=== PATIENT | male | born 1955 | race Caucasian/White ===

== ENCOUNTER → 2016-07-17 | Outpatient (CLI) | payer OTHER ==
[~2016-07-17] MED LIST: AMLO-114 PO; ASPI-435 PO; ATOR-26 PO; B-COCAP2 PO; BACL10TA PO; CEPH500C PO; CHOL2000 PO; DOCU100C31 PO; ERGO500037 PO; LACT10SO17 PO; LISI-725 PO; OMEP40CA PO; OXYC-57 PO; RIVA1TAB4 PO; SENN-65 PO; TIZA4CAP PO; TRAM-10 PO; TRAZ50TA35 PO; XRL15 PO
--- NOTE | 2016-07-17 14:23 | DIAGNOSTIC IMAGING REPORT ---
CHEST 2 VIEWS ROUTINE CLINICAL HISTORY: WEIGHT LOSS COMPARISON STUDY: 05/14/2016 FINDINGS: The cardiac and mediastinal contours are normal. There is no evidence of focal pulmonary consolidation. There is no evidence of failure. No pleural effusions are visualized.[ IMPRESSION: No active disease in the chest. Electronically signed by: Mike Fermin M.D. 07/17/2016 2:21 PM Dictated Date/Time: 07/17/2016 2:21 PM
[2016-07-17 16:56] LABS: BASO % 0.3 %; BASO ABS # 0.03 K/uL (0-0.2); COMPLETE YES; EOS % 1.9 %; HEMATOCRIT 41.6 % (42-52); IG% 0.1 %; LYMPH % 26.1 %; LYMPH ABS # 2.31 K/uL (1.2-3.4); MEAN CELL VOLUME 86.7 fL (80-100); MEAN CORPUSCULAR HEMOGLOBIN 30.8 pg (25-34); MEAN CORPUSCULAR HGB CONC 35.6 g/dl (32-36); MEAN PLATELET VOLUME 10.7 fL (7.4-10.4); MONO % 10.4 %; NEUT % 61.2 %; PLATELET COUNT 330 K/uL (130-400); WHITE BLOOD COUNT 8.84 K/uL (4.8-10.8)
[2016-07-17 17:06] LABS: BLOOD UREA NITROGEN 10 mg/dl (7-18); GLUCOSE 102 mg/dl (70-99)
[2016-07-17 17:07] LABS: ALT/SGPT 26 U/L (12-78); BUN/CREATININE RATIO 11.2 (10-20); CALCIUM 9.5 mg/dl (8.5-10.1); CARBON DIOXIDE 24 mmol/L (21-32); CHLORIDE 101 mmol/L (98-107); CREATININE 0.92 mg/dl (0.60-1.40); POTASSIUM 3.9 mmol/L (3.5-5.1); SODIUM 137 mmol/L (136-145)
[2016-07-17 17:08] LABS: URINE APPEARANCE CLEAR (CLEAR); URINE BILIRUBIN NEG (NEG); URINE COLOR YELLOW; URINE EPITHELIAL CELL AUTO 0-5 /lpf (0-5); URINE NITRITE NEG (NEG); UROBILINOGEN NEG (NEG)
[2016-07-17 17:09] LABS: MANUAL MICROSCOPIC REQUIRED? NO; REVIEW REQ? NO
[2016-07-17 17:18] LABS: ALB/GLOB RATIO 1.3 (0.9-2); ALKALINE PHOSPHATASE 82 U/L (45-117); AST/SGOT 12 U/L (15-37); PROSTATE SPECIFIC ANTIGEN 0.439 ng/ml (0.000-4.000); THYROID STIMULATING HORMONE 0.847 uIu/ml (0.300-4.500)
== END | disposition home or self-care (01) ==
LOC: C.LABBC 13:52
PROVIDERS: ATTEND Family Medicine
DX: R63.4 Abnormal weight loss (principal); Z11.59 Encounter for screening for other viral diseases; R39.9 Unspecified symptoms and signs involving the genitourinary system

== ENCOUNTER → 2016-07-18 | Outpatient (CLI) | payer OTHER ==
[~2016-07-18] MED LIST changes: +OPTIRAY 320 IV PRN
--- NOTE | 2016-07-18 11:33 | DIAGNOSTIC IMAGING REPORT ---
Abdominal CT with and without intravenous contrast, renal protocol HISTORY: Follow-up COMPLEX RENAL CYST TECHNIQUE: Multiaxial CT images of the abdomen were performed both before and after the intravenous administration of contrast including delayed sequences to evaluate the kidneys. COMPARISON STUDY: Abdominal CT 08/03/2015. FINDINGS: There is no change in size or appearance of the lobular 5.1 x 3.3 cm lesion within the right kidney. This does not demonstrate significant enhancement. There are few thin nonenhancing septations which do not appear to be significantly changed. There are few scattered mural calcifications. The areas of calcification have slightly progressed. No areas of soft tissue enhancement. There is a 13 mm nonenhancing hypodense lesion within the upper pole of the right kidney. This is consistent with a cyst. There are few additional subcentimeter hypodense lesions within the right kidney which measure up to 8 mm. These are technically too small to characterize but also favors cysts. A 2.1 cm nonenhancing hypodense lesion within the upper pole the left kidney is consistent with a cyst. A 9 mm hypodense lesion within the upper pole the left kidney is too small to characterize but also favors a cyst. No definite solid enhancing renal lesions. No renal stones or hydronephrosis. No suspicious filling defects seen within the bilateral renal collecting systems or proximal ureters. The lung bases are clear. The liver, gallbladder, pancreas, adrenal glands, and spleen are unremarkable. The visualized loops of bowel show no wall thickening or obstruction. IMPRESSION: 1. No significant change in size in the 5.1 x 3.3 cm cyst within the right kidney. This contains a few thin septations and a few punctate calcifications within the septa. The number of calcifications have slightly increased. However, the septations are not significantly changed. There are no solid enhancing components. Therefore, this is consistent with a Bosniak category 2 cyst. 2. Additional hypodense lesions as described above also likely represent cysts. Some of these are subcentimeter in size and technically too small to characterize. Electronically signed by: Manoj Gee M.D. 07/18/2016 11:32 AM Dictated Date/Time: 07/18/2016 11:04 AM
== END | disposition home or self-care (01) ==
LOC: C.CTS 10:08
PROVIDERS: ATTEND Urology
DX: N28.1 Cyst of kidney, acquired (principal)

== ENCOUNTER 2016-11-16 18:10 | Emergency (ER) | payer OTHER ==
[~2016-11-16] VITALS: Ht 193 cm; Wt 85.0 kg
[~2016-11-16 18:10] MED LIST changes: -CEPH500C PO; -LACT10SO17 PO; -OPTIRAY 320 IV PRN; -OXYC-57 PO; -SENN-65 PO; -TIZA4CAP PO; -XRL15 PO
[2016-11-16 18:14] VITALS: TEMP 36.7; Ht 193 cm; Wt 85.0 kg
[2016-11-16] MEDS ORDERED: OXYCODONE/ACETAMINOPHEN 5-325 TAB PO STA (18:23)
[2016-11-16] MEDS ORDERED: PERCOCET HOME PACK PO STA (18:23)
[2016-11-16] MEDS ORDERED: OXYC-57 PO (18:29)
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
[2016-11-16] MEDS ORDERED: HYDROmorphone INJ 1 MG/ML SYR IM STA (18:36)
[2016-11-16] MEDS ORDERED: LACT10SO17 PO (18:38)
[2016-11-16 20:26] VITALS: BP 117/69; PULSE 77; O2SAT 98
[2016-11-23] MEDS ORDERED: CEPH500C PO (08:42)
== END 2016-11-16 20:28 | disposition home or self-care (01) ==
LOC: C.EDB 18:12 → C.EDD 20:28
DX: T25.221A Burn of second degree of right foot, initial encounter (principal); T25.231A Burn of second degree of right toe(s) (nail), initial encounter; X12.XXXA Contact with other hot fluids, initial encounter; I10 Essential (primary) hypertension; E78.5 Hyperlipidemia, unspecified; F41.9 Anxiety disorder, unspecified; Z86.73 Personal history of transient ischemic attack (TIA), and cerebral infarction without residual deficits; Z86.711 Personal history of pulmonary embolism; Z86.718 Personal history of other venous thrombosis and embolism; Z79.82 Long term (current) use of aspirin; Z79.899 Other long term (current) drug therapy; Z88.6 Allergy status to analgesic agent; Z80.9 Family history of malignant neoplasm, unspecified; Z82.49 Family history of ischemic heart disease and other diseases of the circulatory system

== ENCOUNTER → 2016-12-06 | Outpatient (CLI) | payer OTHER ==
[~2016-12-06] MED LIST changes: +CEPH500C PO; -DOCU100C31 PO; +LACT10SO17 PO; -TRAM-10 PO
--- NOTE | 2016-12-06 14:56 | DIAGNOSTIC IMAGING REPORT ---
CHEST 2 VIEWS ROUTINE CLINICAL HISTORY: ABNORMAL WEIGHT LOSS, FATIGUE COMPARISON STUDY: 07/17/2016 FINDINGS: The cardiac and mediastinal contours are normal. There is no evidence of focal pulmonary consolidation. There is no evidence of failure. No pleural effusions are visualized.[ IMPRESSION: No active disease in the chest. Electronically signed by: Mike Fermin M.D. 12/06/2016 2:54 PM Dictated Date/Time: 12/06/2016 2:54 PM
== END | disposition home or self-care (01) ==
LOC: C.RADBC 14:38
PROVIDERS: ATTEND Internal Medicine Gastroenterology
DX: R63.4 Abnormal weight loss (principal); R53.83 Other fatigue

== ENCOUNTER → 2016-12-13 | Outpatient (CLI) | payer OTHER ==
--- NOTE | 2016-12-13 08:33 | DIAGNOSTIC IMAGING REPORT ---
ABDOMINAL ULTRASOUND COMPLETE HISTORY: Weight loss fatigue. COMPARISON: 07/12/2015 FINDINGS: Pancreas: The pancreas demonstrates a normal echotexture. Liver: Unremarkable. Gallbladder: Small gallbladder polyp. No shadowing gallstones. CBD: 5 mm Kidneys: No evidence for hydronephrosis. Right complex cysts of the right kidney unchanged. Small simple cyst upper pole left kidney unchanged. Spleen: Normal in size. Aorta: Normal in caliber. IVC: Patent. IMPRESSION: Small gallbladder polyp. Bilateral renal cysts unchanged from prior exams. No new or interval finding. Electronically signed by: Catarino Zhong M.D. 12/13/2016 8:32 AM Dictated Date/Time: 12/13/2016 8:29 AM
[2016-12-13 14:18] LABS: BLOOD UREA NITROGEN 12 mg/dl (7-18); BUN/CREATININE RATIO 15.8 (10-20); CALCIUM 9.2 mg/dl (8.5-10.1); CARBON DIOXIDE 26 mmol/L (21-32); CHLORIDE 108 mmol/L (98-107); CREATININE 0.75 mg/dl (0.60-1.40); GLUCOSE 95 mg/dl (70-99); SODIUM 142 mmol/L (136-145)
== END | disposition home or self-care (01) ==
LOC: C.ULTR 07:12
PROVIDERS: ATTEND Internal Medicine Gastroenterology
DX: R63.4 Abnormal weight loss (principal); R53.83 Other fatigue; N28.1 Cyst of kidney, acquired; K82.4 Cholesterolosis of gallbladder

== ENCOUNTER → 2016-12-14 | Outpatient (CLI) | payer OTHER ==
[~2016-12-14] MED LIST changes: +GADAVIST IV PRN
--- NOTE | 2016-12-14 08:43 | DIAGNOSTIC IMAGING REPORT ---
MRI OF THE BRAIN WITHOUT AND WITH IV CONTRAST CLINICAL HISTORY: VISION Changes, weight LOSS COMPARISON STUDY: 01/18/2016 TECHNIQUE: Utilizing a 1.5 Jenny magnet and dedicated coil, multiplanar, multiecho imaging of the brain was performed pre and postcontrast administration. IV administration of 8.4 mL of Gadavist contrast was uneventful. FINDINGS: No evidence for an acute ischemic process. Chronic small vessel change of the periventricular deep white matter regions. Occlusion or near occlusion left internal carotid artery which has been a chronic finding in this patient. Ventricular system is midline. Mild age-appropriate atrophy and chronic small vessel change. Left periventricular infarcts previously described are not well seen currently. IMPRESSION: Chronic small vessel change. Mild atrophy. Chronic occlusion left internal carotid artery. No new or interval process. Electronically signed by: Catarino Zhong M.D. 12/14/2016 8:42 AM Dictated Date/Time: 12/14/2016 8:38 AM
== END | disposition home or self-care (01) ==
LOC: C.MRIBC 07:43
PROVIDERS: ATTEND Physician Assistant
DX: I65.22 Occlusion and stenosis of left carotid artery (principal); R63.4 Abnormal weight loss; H53.9 Unspecified visual disturbance

== ENCOUNTER → 2017-01-04 | Outpatient (CLI) | payer OTHER ==
[~2017-01-04] MED LIST changes: -GADAVIST IV PRN
== END | disposition home or self-care (01) ==
LOC: C.LABBC 10:07
PROVIDERS: ATTEND Internal Medicine
DX: E55.9 Vitamin D deficiency, unspecified (principal)

== ENCOUNTER → 2017-06-04 | Outpatient (CLI) | payer OTHER ==
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
== END | disposition home or self-care (01) ==
LOC: C.RAD 10:03
PROVIDERS: ATTEND Internal Medicine Gastroenterology
DX: R07.81 Pleurodynia (principal); S22.41XA Multiple fractures of ribs, right side, initial encounter for closed fracture; W19.XXXA Unspecified fall, initial encounter

== ENCOUNTER → 2017-06-12 | Outpatient (CLI) | payer OTHER ==
--- NOTE | 2017-06-12 17:01 | DIAGNOSTIC IMAGING REPORT ---
BRAIN WITHOUT CONTRAST HISTORY: 62 years-old Male 69.30 History of stroke with residual [id number] Decreased p acute strokelike symptoms. COMPARISON: Brain MR 12/14/2016 and 01/18/2016, head CT 05/22/2016 TECHNIQUE: Multiplanar multisequence MRI of the brain was obtained without contrast. FINDINGS: There is no restricted diffusion. The midline structures including the corpus callosum, brainstem, optic chiasm, pineal and pituitary glands are unremarkable in the sagittal T1 series. No cerebellar tonsillar herniation. Mild degenerative changes of the imaged cervical spine. Minimal atrophy. Minimal encephalomalacia with gliosis and volume loss is seen involving the left basal ganglia from prior infarct. No significant parenchymal signal abnormalities identified throughout the brain. No pathologic-appearing blooming artifact suggest hemorrhage. Chronic occlusion of the imaged distal left internal carotid artery. The calvarium, scalp and soft tissues are unremarkable. Small right marisa bullosa. There is minimal mucosal thickening of the left sphenoid sinus and ethmoid air cells. No large mastoid effusion identified. IMPRESSION: 1. No acute intracranial abnormality. No acute infarct or intracranial hemorrhage. 2. Small remote infarction of the left basal ganglia. 3. Chronic occlusion of the imaged distal left internal carotid artery. The above report was generated using voice recognition software. It may contain grammatical, syntax or spelling errors. Electronically signed by: Flako Monsivais M.D. 06/12/2017 5:00 PM Dictated Date/Time: 06/12/2017 4:52 PM
== END ==
LOC: C.MRIBC 14:57
PROVIDERS: ATTEND Physician Assistant
DX: I69.398 Other sequelae of cerebral infarction (principal); I65.22 Occlusion and stenosis of left carotid artery

== ENCOUNTER 2017-09-28 18:14 | Emergency (ER) | payer OTHER ==
[~2017-09-28] VITALS: Ht 193 cm; Wt 81.3 kg
[2017-09-28 18:21] VITALS: TEMP 37; Ht 193 cm; Wt 81.3 kg
--- NOTE | 2017-09-28 18:41 | EMERGENCY ROOM VISIT NOTE ---
History Report prepared by Lobo: niurka Rogers Under the Supervision of: Dr. Kevan Asher M.D. 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 He states he started feeling a "painful sensation" in his left leg that reminds him of when he had a blood clot. He denies any SOB, nausea, vomiting, chest pain, or recent pain or trauma. His last blood clot was 27 months ago. His last stroke was 19 months ago. 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 A total of 10 systems reviewed and were otherwise negative. Past Medical & Surgical Medical Problems: (1) Anxiety disorder (2) Dyslipidemia (3) Facial droop (4) History of CVA (cerebrovascular accident) (5) History of DVT (deep vein thrombosis) (6) HTN (hypertension) (7) Pulmonary embolism (8) Pulmonary embolism (9) Renal cyst (10) Right leg DVT Surgical Problems: (1) S/P left knee arthroscopy Old medical records were reviewed. Nurse's notes were reviewed and I agree with. Family History Cancer Hypertension Social History Smoking Status: Former Smoker Drug Use: none Marital Status: single Housing Status: lives alone Occupation Status: disabled Current/Historical Medications Scheduled Amlodipine (Norvasc), 10 MG PO DAILY Aspirin (Aspirin 81), 81 MG PO DAILY Atorvastatin (Lipitor), 80 MG PO HS Baclofen (Lioresal), 5 MG PO BID Cephalexin Monohydrate (Keflex), 500 MG PO QID Cholecalciferol (Vitamin D3), 2,000 UNITS PO DAILY Ergocalciferol (Vitamin D 00251 Unit), 50,000 UNIT PO WK Lactulose (Chronulac), 30 ML PO BID Lisinopril (Zestril), 20 MG PO QAM Omeprazole (Prilosec), 40 MG PO DAILY Rivaroxaban (Xarelto), 20 MG PO DAILY Trazodone Hcl (Trazodone), 50 MG PO HS Vitamin B Cmplx/Vitc/Folic Ac (Nephrocaps), 1 CAP PO DAILY Allergies Coded Allergies: Ibuprofen (Verified Allergy, Unknown, UNKNOWN, 05/24/17) PER PATIENT HE IS UNSURE WHERE THIS ALLERGY CAME FROM. HE STATES HE HAS NEVER HAD A PROBLEM WITH IBUPROFEN OR ASPIRIN BEFORE. Physical Exam Vital Signs Date Time Temp Pulse Resp B/P (MAP) Pulse Ox O2 Delivery O2 Flow Rate FiO2 09/28/17 21:09 84 20 131/87 99 09/28/17 20:13 86 20 136/98 97 Room Air 09/28/17 18:21 37.0 118 20 156/99 96 Room Air Physical Exam General: Non-ill appearing middle aged male in no acute distress. HEENT: Normal cephalic atraumatic. Pupils are equal round and reactive to light. Extraocular movements are intact. Oropharynx is pink with moist mucous membranes. No swelling of the mouth lips or tongue. Neck: Supple with a midline trachea. No meningeal signs or stiffness, no JVD or bruits. No Stridor. Chest: Clear to auscultation bilaterally. No wheezes or rhonchi. No increased work of breathing. Heart: regular rate and rhythm. Abdomen: Soft nontender, nondistended without rebound guarding or rigidity. Extremities: Baseline weakness of right arm and leg compared to the left. Left leg has no redness or warmth, no calf tenderness, normal motory sensation, normal pulse exam Spine/Back. Non tender to palpation. No CVA tenderness Skin: Good turgor without rashes. Neurologic exam: Cranial nerves two through 12 are intact. Motor and sensation are intact and symmetrical throughout. Medical Decision & Procedures ER Provider Diagnostic Interpretation: Radiology results as stated below per my review and radiologist interpretation: ULTRASOUND L VENOUS DOPP LOWER EXT UNILAT CLINICAL HISTORY: Left leg swelling COMPARISON STUDY: No previous studies for comparison. FINDINGS: Real-time and color flow Doppler imaging were performed. Flow was seen within the femoral, popliteal and calf veins with no intraluminal thrombus demonstrated. The saphenous vein is patent. IMPRESSION: No evidence of left lower extremity DVT. Electronically signed by: Mike Fermin M.D. 09/28/2017 8:32 PM Dictated Date/Time: 09/28/2017 8:31 PM Laboratory Results 09/28/17 19:00 Red Blood Count 4.17, Mean Corpuscular Volume 89.2, Mean Corpuscular Hemoglobin 32.4, Mean Corpuscular Hemoglobin Concent 36.3, Mean Platelet Volume 9.3, Neutrophils (%) (Auto) 55.6, Lymphocytes (%) (Auto) 31.0, Monocytes (%) (Auto) 12.0, Eosinophils (%) (Auto) 0.8, Basophils (%) (Auto) 0.4, Neutrophils # (Auto ) 2.93, Lymphocytes # (Auto) 1.63, Monocytes # (Auto) 0.63, Eosinophils # (Auto ) 0.04, Basophils # (Auto) 0.02 09/28/17 19:00 Test 09/28/17 19:00 White Blood Count 5.26 K/uL (4.8-10.8) Red Blood Count 4.17 M/uL (4.7-6.1) Hemoglobin 13.5 g/dL (14.0-18.0) Hematocrit 37.2 % (42-52) Mean Corpuscular Volume 89.2 fL (80-100) Mean Corpuscular Hemoglobin 32.4 pg (25-34) Mean Corpuscular Hemoglobin Concent 36.3 g/dl (32-36) Platelet Count 262 K/uL (130-400) Mean Platelet Volume 9.3 fL (7.4-10.4) Neutrophils (%) (Auto) 55.6 % Lymphocytes (%) (Auto) 31.0 % Monocytes (%) (Auto) 12.0 % Eosinophils (%) (Auto) 0.8 % Basophils (%) (Auto) 0.4 % Neutrophils # (Auto) 2.93 K/uL (1.4-6.5) Lymphocytes # (Auto) 1.63 K/uL (1.2-3.4) Monocytes # (Auto) 0.63 K/uL (0.11-0.59) Eosinophils # (Auto) 0.04 K/uL (0-0.5) Basophils # (Auto) 0.02 K/uL (0-0.2) RDW Standard Deviation 42.0 fL (36.4-46.3) RDW Coefficient of Variation 12.9 % (11.5-14.5) Immature Granulocyte % (Auto) 0.2 % Immature Granulocyte # (Auto) 0.01 K/uL (0.00-0.02) Prothrombin Time 10.2 SECONDS (9.0-12.0) Prothromb Time International Ratio 1.0 (0.9-1.1) Activated Partial Thromboplast Time 24.7 SECONDS (21.0-31.0) Partial Thromboplastin Ratio 1.0 Anion Gap 6.0 mmol/L (3-11) Est Creatinine Clear Calc Drug Dose 123.9 ml/min Estimated GFR () 116.7 Estimated GFR (Non- 100.7 BUN/Creatinine Ratio 18.2 (10-20) Calcium Level 9.3 mg/dl (8.5-10.1) Laboratory studies as stated above per my review. ED Course 1926: Past medical records reviewed. The patient was evaluated in room A3, and a complete history and physical examination were performed. 2046: Upon reevaluation, the patient is content and agreeable. I discussed the results and treatment plan with him. He verbalized agreement of the treatment plan. The patient was discharged home. Medical Decision Differential diagnosis: Etiologies such as DVT, musculoskeletal, infection, electrolyte or metabolic abnormality, as well as others were entertained. This patient comes in as described above. He was placed in room A3. He is here for treatment and evaluation of left leg pain. He does have a history of several DVTs and missed a couple doses of Xarelto as he forgot his meds when he is out of town. On exam, he has no evidence of compartment syndrome or cellulitis. He has no chest pain or shortness of breath or anything to suggest PE. he has some chronic weakness in the right side but no neurologic deficits. He has had no trauma trauma or fall. IV access was established and blood work was obtained. He has no significant electrolyte or metabolic abnormalities. Ultrasound was obtained and fortunately shows no evidence of DVT. He is feeling well and would like to go home. He did take his evening dose of Xarelto here and I encouraged him to make sure that he takes it as directed. He was encouraged to return if: worsening of symptoms, increasing pain or swelling, fever chills, any new problems or concerns. He is happy the plan and discharged to home. Medication Reconcilliation Current Medication List: was personally reviewed by me Blood Pressure Screening Patient's blood pressure: Elevated blood pressure Blood pressure disposition: Elevated BP felt to be situational Impression Primary Impression: Leg pain, left Scribe Attestation The scribe's documentation has been prepared under my direction and personally reviewed by me in its entirety. I confirm that the note above accurately reflects all work, treatment, procedures, and medical decision making performed by me. Departure Information Dispostion Home / Self-Care Referrals Liang De La Rosa M.D. (PCP) Forms HOME CARE DOCUMENTATION FORM, IMPORTANT VISIT INFORMATION Patient Instructions My [facility] Additional Instructions Restart your Xarelto Return if: Increasing pain, chest pain, shortness of breath, fever chills, any new problems or concerns Follow-up with your doctor for recheck this week
[2017-09-28 19:25] LABS: BASO % 0.4 %; BASO ABS # 0.02 K/uL (0-0.2); EOS % 0.8 %; EOS ABS # 0.04 K/uL (0-0.5); HEMATOCRIT 37.2 % (42-52); HEMOGLOBIN 13.5 g/dL (14.0-18.0); IG# 0.01 K/uL (0.00-0.02); LYMPH ABS # 1.63 K/uL (1.2-3.4); MEAN CELL VOLUME 89.2 fL (80-100); MEAN CORPUSCULAR HEMOGLOBIN 32.4 pg (25-34); MEAN CORPUSCULAR HGB CONC 36.3 g/dl (32-36); MEAN PLATELET VOLUME 9.3 fL (7.4-10.4); MONO ABS # 0.63 K/uL (0.11-0.59); NEUT % 55.6 %; NEUT ABS # 2.93 K/uL (1.4-6.5); PLATELET COUNT 262 K/uL (130-400); RED CELL DISTRIBUTION WIDTH CV 12.9 % (11.5-14.5); WHITE BLOOD COUNT 5.26 K/uL (4.8-10.8)
[2017-09-28 19:35] LABS: PTT PATIENT 24.7 SECONDS (21.0-31.0)
[2017-09-28 19:42] LABS: CALCIUM 9.3 mg/dl (8.5-10.1); CREATININE 0.72 mg/dl (0.60-1.40); POTASSIUM 3.7 mmol/L (3.5-5.1)
--- NOTE | 2017-09-28 20:33 | DIAGNOSTIC IMAGING REPORT ---
ULTRASOUND L VENOUS DOPP LOWER EXT UNILAT CLINICAL HISTORY: Left leg swelling COMPARISON STUDY: No previous studies for comparison. FINDINGS: Real-time and color flow Doppler imaging were performed. Flow was seen within the femoral, popliteal and calf veins with no intraluminal thrombus demonstrated. The saphenous vein is patent. IMPRESSION: No evidence of left lower extremity DVT. Electronically signed by: Mike Fermin M.D. 09/28/2017 8:32 PM Dictated Date/Time: 09/28/2017 8:31 PM
[2017-09-28 21:09] VITALS: BP 131/87; PULSE 84; O2SAT 99
== END 2017-09-28 21:11 | disposition home or self-care (01) ==
LOC: C.EDB 18:16 → C.EDA 21:11
DX: M79.605 Pain in left leg (principal); Z86.73 Personal history of transient ischemic attack (TIA), and cerebral infarction without residual deficits; F41.9 Anxiety disorder, unspecified; E78.5 Hyperlipidemia, unspecified; Z86.718 Personal history of other venous thrombosis and embolism; I10 Essential (primary) hypertension; Z86.711 Personal history of pulmonary embolism; Z80.9 Family history of malignant neoplasm, unspecified; Z82.49 Family history of ischemic heart disease and other diseases of the circulatory system; Z87.891 Personal history of nicotine dependence; Z79.82 Long term (current) use of aspirin; Z79.01 Long term (current) use of anticoagulants; Z79.899 Other long term (current) drug therapy; Z88.8 Allergy status to other drugs, medicaments and biological substances

== ENCOUNTER → 2017-10-30 | Outpatient (CLI) | payer OTHER ==
[2017-10-30 11:38] LABS: BASO % 0.6 %; BASO ABS # 0.03 K/uL (0-0.2); EOS % 2.3 %; EOS ABS # 0.11 K/uL (0-0.5); HEMATOCRIT 39.1 % (42-52); HEMOGLOBIN 13.6 g/dL (14.0-18.0); LYMPH % 24.7 %; LYMPH ABS # 1.19 K/uL (1.2-3.4); MEAN CELL VOLUME 90.9 fL (80-100); MEAN CORPUSCULAR HEMOGLOBIN 31.6 pg (25-34); MEAN CORPUSCULAR HGB CONC 34.8 g/dl (32-36); MEAN PLATELET VOLUME 10.3 fL (7.4-10.4); MONO % 12.3 %; MONO ABS # 0.59 K/uL (0.11-0.59); NEUT % 60.1 %; NEUT ABS # 2.89 K/uL (1.4-6.5); PLATELET COUNT 276 K/uL (130-400); RED CELL DISTRIBUTION WIDTH CV 13.2 % (11.5-14.5); RED CELL DISTRIBUTION WIDTH SD 43.5 fL (36.4-46.3); WHITE BLOOD COUNT 4.81 K/uL (4.8-10.8)
[2017-10-30 12:02] LABS: HEMOGLOBIN A1C 5.4 % (4.5-5.6)
[2017-10-30 12:13] LABS: ALKALINE PHOSPHATASE 55 U/L (45-117); ALT/SGPT 28 U/L (12-78); AST/SGOT 15 U/L (15-37); BLOOD UREA NITROGEN 14 mg/dl (7-18); CALCIUM 8.5 mg/dl (8.5-10.1); CARBON DIOXIDE 26 mmol/L (21-32); CHOLESTEROL 144 mg/dl (0-200); CREATININE 0.89 mg/dl (0.60-1.40); GLUCOSE 102 mg/dl (70-99); SODIUM 139 mmol/L (136-145); TOTAL PROTEIN 7.3 gm/dl (6.4-8.2)
[2017-10-30 12:26] LABS: LDL CHOLESTEROL CALCULATED 66 mg/dl
== END | disposition home or self-care (01) ==
LOC: C.LABBC 08:55
PROVIDERS: ATTEND Internal Medicine
DX: I10 Essential (primary) hypertension (principal); E55.9 Vitamin D deficiency, unspecified; E53.8 Deficiency of other specified B group vitamins; E78.5 Hyperlipidemia, unspecified; G47.00 Insomnia, unspecified; D68.59 Other primary thrombophilia; I69.30 Unspecified sequelae of cerebral infarction

== ENCOUNTER → 2017-11-02 | Outpatient (CLI) | payer OTHER | END | disposition home or self-care (01) | LOC: C.LABBC 13:47 | PROVIDERS: ATTEND Physician Assistant Medical | DX: D64.9 Anemia, unspecified (principal); R53.83 Other fatigue ==